=== PATIENT | female | born 1990 | race Caucasian/White ===

== ENCOUNTER 2018-11-24 23:25 | Emergency (ER) | payer OTHER ==
[~2018-11-24] VITALS: Ht 160 cm; Wt 103.4 kg
[2018-11-24] MEDS ORDERED: LEVAQUIN750 MG (23:46)
[2018-11-25] MEDS ORDERED: LEVAQUIN750 MG PO (04:12)
[2018-11-25] MEDS ORDERED: KETO10TA2 PO (04:21)
== END 2018-11-25 04:52 | disposition home or self-care (01) ==
LOC: ER 23:25
DX: N12 Tubulo-interstitial nephritis, not specified as acute or chronic (principal); M54.5 Low back pain